=== PATIENT | female | born 1935 | race Caucasian/White ===

== ENCOUNTER 2021-08-18 16:08 | Inpatient (IN) ==
[2021-08-18 16:13] VITALS: BMI 27.2
--- NOTE | 2021-08-18 17:13 | ED.PDOC ---
General ED Provider: Dr. ROB OMALLEY Chief Complaint: Hypoglycemia Stated Complaint: Found unresponsive at home. Paramedics from [facility] called. Administered Glucagon. unable to gain vascular access and transported to ER. Currently awake, alert and communicating. IV access obtained Time Seen by Provider: 08/18/21 16:20 Mode of Arrival: Ambulance Information Source: Patient and EMT Exam Limitations: No limitations Primary Care Provider: NINI JALLOH Nursing and Triage Documentation Reviewed and Agree: Yes Does patient meet sepsis criteria?: No System Inflammatory Response Syndrome: Not Applicable Sepsis Protocol: For patient's 13 years and over: Temp is 96.8 and below OR 101 and greater Pulse >90 BPM Resp >20/minute Acutely Altered Mental Status Are patient's symptoms suggestive of a new infection, such as: -Pneumonia -Skin, Soft Tissue -Endocarditis -UTI -Bone, Joint Infection -Implantable Device -Acute Abdominal Infection -Wound Infection -Meningitis -Blood Stream Catheter Infection -Unknown Endocrine Complaint Exam Diabetic Complication Complaint/Exam Onset/Duration: 1300 Symptoms Are: Resolved Timing: Intermittent Initial Severity: Severe Current Severity: None Character: Alert Aggravating: Reports Diet change and Medication change Alleviating: Reports Medications Associated Signs and Symptoms: Reports Decreased LOC Related History: Reports Similar episode, DM 2, Insulin requiring, Controlled and Compliant Last Glucometer Reading: unknown Cardiac Risk Factors: Reports DM, Hypertension and Elevated lipids CVA Risk Factors: Reports DM and Hypertension Serious Bacterial Infection Risk Factors: Reports None Related Surgical History: Reports None Acetone on Breath: No Dry Mucous Membranes: No Kussmaul Respirations: No Meningeal Signs: No Focal Weakness: None Focal Sensory Loss: None Gait: Unable Nystagmus Present: No Gag Reflex Present: Yes Finger to Nose: Normal Babinski Sign: Negative Right and Negative Left Heel to Toe Normal: Yes Differential Diagnoses: Hypoglycemia, Pneumonia and Sepsis Review of Systems Review Of Systems Constitutional: Reports Malaise and Weakness Eyes: Reports No symptoms Ears, Nose, Mouth, Throat: Reports No symptoms Respiratory: Reports No symptoms Cardiac: Reports No symptoms GI: Reports No symptoms : Reports No symptoms Musculoskeletal: Reports No symptoms Skin: Reports No symptoms Neurological: Reports Cognitive dysfunction (initiallly) Endocrine: Reports No symptoms Hematologic/Lymphatic: Reports No symptoms All Other Systems: Reviewed and Negative [facility] Medical History (Updated 08/18/21 @ 22:27 by LAURA QUINTANA RN) Arthritis Arthritis Dementia Diabetes mellitus Hypertension Family History (Updated 08/18/21 @ 22:27 by LAURA QUINTANA RN) Mother Diabetes MATERNAL GRANDMOTHER Diabetes SISTER Diabetes Social History (Updated 08/18/21 @ 22:29 by LAURA QUINTANA RN) Smoking and tobacco status: Former smoker Tobacco: How many years used: 45 Female Reproductive History Menstrual Hx Hysterectomy: No Hx Tubal Ligation: No Physical Exam Physical Exam Appearance: Reports Ill-appearing and Obese Ill-appearing: Mild Pain Distress: None Eyes: Reports ADRIAN, EOMI and Conjunctiva clear ENT: Reports Ears normal, Nose normal and Oropharynx normal Neck: Supple Respiratory: Reports Airway patent, Breath sounds clear, Breath sounds equal and Respirations nonlabored Cardiovascular: Reports RRR, Pulses normal, No rub and No murmur GI/: Reports Soft, Nontender, No masses, Bowel sounds normal and No Organomegaly Musculoskeletal: Reports Normal strength, ROM intact, No edema and No calf tenderness Skin: Reports Warm and Dry Neurological: Reports Sensation intact, Motor intact, Cranial nerves intact, Alert, Oriented and Alert to pain Psychiatric: Reports Affect appropriate and Anxious Interpretation Radiology Interpretation Exam Interpreted: Portable CXR (no acute findings) Radiology Interpretation By: Radiologist Physician Notification Case Discussed Physician Notified: Dr Baird Time of Notification: 19:00 Comments: Will admt for observation/Son refused to come and pick her up no transportation Critical Care Note Critical Care Note Total Critical Care Time (mins): 30 Course Course Hematology/Chemistry: 08/19/21 05:08 08/19/21 05:58 Orders, Labs, Meds: Lab Review 08/18/21 08/18/21 08/18/21 17:20 17:20 17:56 WBC 19.11 H RBC 4.31 Hgb 13.2 Hct 40.8 MCV 94.7 MCH 30.6 MCHC 32.4 RDW Coeff of [place] 14.3 Plt Count 235 Immature Gran % (Auto) 0.3 Neut % (Auto) 79.0 H Lymph % (Auto) 14.7 [place] % (Auto) 4.5 Eos % (Auto) 0.8 Baso % (Auto) 0.7 Neut # (Auto) 15.1 H Lymph # (Auto) 2.8 [place] # (Auto) 0.9 Eos # (Auto) 0.2 Baso # (Auto) 0.1 Immature Gran # (Auto) 0.1 Sodium 143.5 Potassium 4.11 Chloride 109.5 H Carbon Dioxide 26.7 Anion Gap 11.41 BUN 18.8 H Creatinine 0.96 Estimated GFR (MDRD) 55.00 BUN/Creatinine Ratio 19.58 Glucose 107.7 H Lactic Acid Uric Acid 5.13 Calcium 8.49 Total Bilirubin 0.19 L AST 20.0 ALT 9.7 Alkaline Phosphatase 68.6 Troponin I < 0.012 Total Protein 6.57 Albumin 3.47 L Globulin 3.10 Albumin/Globulin Ratio 1.11 Procalcitonin Urine Color Yellow Urine Clarity Clear Urine pH 5.0 Ur Specific [place] >=1.030 Urine Protein Negative Urine Glucose (UA) Negative Urine Ketones Negative Urine Blood Negative Urine Nitrite Negative Urine Bilirubin Negative Urine Urobilinogen 0.2 Ur Leukocyte Esterase Trace H Urine Microscopic WBC 2-5 Ur Squamous Epith Cells 20-30 Urine Mucus 1+ Adenovirus (PCR) B. pertussis DNA (PCR) B.parapertussis DNA PCR C. pneumoniae DNA (PCR) Coronavirus OC43 (PCR) Coronavirus HKU1 (PCR) Coronavirus 229E (PCR) Coronavirus NL63 (PCR) Human Metapneumovir PCR Influenza Type A (PCR) Influenza B (RT-PCR) M. pneumoniae (PCR) Parainfluenza 1 (PCR) Parainfluenza 2 (PCR) Parainfluenza 3 (PCR) Parainfluenza 4 (PCR) RSV (PCR) Entero/Rhino (PCR) SARS-CoV-2 (PCR) 08/18/21 08/18/21 08/18/21 19:00 19:00 19:00 WBC 16.23 H RBC 4.40 Hgb 13.2 Hct 41.7 MCV 94.8 MCH 30.0 MCHC 31.7 L RDW Coeff of [place] 14.5 Plt Count 225 Immature Gran % (Auto) 0.4 Neut % (Auto) 74.1 Lymph % (Auto) 20.8 [place] % (Auto) 3.5 Eos % (Auto) 0.5 Baso % (Auto) 0.7 Neut # (Auto) 12.0 H Lymph # (Auto) 3.4 [place] # (Auto) 0.6 Eos # (Auto) 0.1 Baso # (Auto) 0.1 Immature Gran # (Auto) 0.1 Sodium Potassium Chloride Carbon Dioxide Anion Gap BUN Creatinine Estimated GFR (MDRD) BUN/Creatinine Ratio Glucose 110.2 H Lactic Acid 2.02 Uric Acid Calcium Total Bilirubin AST ALT Alkaline Phosphatase Troponin I Total Protein Albumin Globulin Albumin/Globulin Ratio Procalcitonin Urine Color Urine Clarity Urine pH Ur Specific [place] Urine Protein Urine Glucose (UA) Urine Ketones Urine Blood Urine Nitrite Urine Bilirubin Urine Urobilinogen Ur Leukocyte Esterase Urine Microscopic WBC Ur Squamous Epith Cells Urine Mucus Adenovirus (PCR) B. pertussis DNA (PCR) B.parapertussis DNA PCR C. pneumoniae DNA (PCR) Coronavirus OC43 (PCR) Coronavirus HKU1 (PCR) Coronavirus 229E (PCR) Coronavirus NL63 (PCR) Human Metapneumovir PCR Influenza Type A (PCR) Influenza B (RT-PCR) M. pneumoniae (PCR) Parainfluenza 1 (PCR) Parainfluenza 2 (PCR) Parainfluenza 3 (PCR) Parainfluenza 4 (PCR) RSV (PCR) Entero/Rhino (PCR) SARS-CoV-2 (PCR) 08/18/21 08/18/21 19:00 21:00 WBC RBC Hgb Hct MCV MCH MCHC RDW Coeff of [place] Plt Count Immature Gran % (Auto) Neut % (Auto) Lymph % (Auto) [place] % (Auto) Eos % (Auto) Baso % (Auto) Neut # (Auto) Lymph # (Auto) [place] # (Auto) Eos # (Auto) Baso # (Auto) Immature Gran # (Auto) Sodium Potassium Chloride Carbon Dioxide Anion Gap BUN Creatinine Estimated GFR (MDRD) BUN/Creatinine Ratio Glucose Lactic Acid Uric Acid Calcium Total Bilirubin AST ALT Alkaline Phosphatase Troponin I Total Protein Albumin Globulin Albumin/Globulin Ratio Procalcitonin 0.05 Urine Color Urine Clarity Urine pH Ur Specific [place] Urine Protein Urine Glucose (UA) Urine Ketones Urine Blood Urine Nitrite Urine Bilirubin Urine Urobilinogen Ur Leukocyte Esterase Urine Microscopic WBC Ur Squamous Epith Cells Urine Mucus Adenovirus (PCR) Not detected B. pertussis DNA (PCR) Not detected B.parapertussis DNA PCR Not detected C. pneumoniae DNA (PCR) Not detected Coronavirus OC43 (PCR) Not detected Coronavirus HKU1 (PCR) Not detected Coronavirus 229E (PCR) Not detected Coronavirus NL63 (PCR) Not detected Human Metapneumovir PCR Not detected Influenza Type A (PCR) Not detected Influenza B (RT-PCR) Not detected M. pneumoniae (PCR) Not detected Parainfluenza 1 (PCR) Not detected Parainfluenza 2 (PCR) Not detected Parainfluenza 3 (PCR) Not detected Parainfluenza 4 (PCR) Not detected RSV (PCR) Not detected Entero/Rhino (PCR) Not detected SARS-CoV-2 (PCR) Not detected Orders Category Date Time Status ADMIT OBSERVATION [PLACE PATIENT OBSERVATION] .TO ADMISSION 08/18/21 20:29 Active MEDSURG (MONITORED BED) EKG-(ED ONLY) Stat CARDIO 08/18/21 20:10 Completed ACTIVITY .Up With Assistance CARE 08/18/21 20:09 Active BLOOD GLUCOSE MONITORING 0630,1100,1700,2100 CARE 08/18/21 20:12 Completed GIVE HS SNACK 2100 CARE 08/18/21 20:12 Active INTAKE & OUTPUT Q8HR CARE 08/18/21 20:10 Completed IP: INSERT SALINE LOCK ONCE CARE 08/18/21 20:10 Active TELEMETRY MONITORING TELE CARE 08/18/21 20:30 Active VITAL SIGNS Q4HR CARE 08/18/21 20:11 Completed VITAL SIGNS Q8HR CARE 08/18/21 20:10 Active ADA 1800 DANIA. DIET DIETARY 08/18/21 Breakfast Ordered BLOOD CULTURE (ED ONLY) Stat LAB 08/18/21 18:00 Received CBC W/ AUTO DIFF DAILY@0600 LAB 08/19/21 05:08 Completed CBC W/ AUTO DIFF DAILY@0600 LAB 08/20/21 06:00 Ordered CBC W/ AUTO DIFF Stat LAB 08/18/21 17:20 Completed CBC W/ AUTO DIFF Stat LAB 08/18/21 19:00 Completed CMP [COMPREHENSIVE METABOLIC PANEL] Stat LAB 08/18/21 17:20 Completed COMPREHENSIVE METABOLIC PANEL DAILY@0600 LAB 08/19/21 05:08 Completed COMPREHENSIVE METABOLIC PANEL DAILY@0600 LAB 08/20/21 06:00 Ordered GLUCOSE Stat LAB 08/18/21 19:00 Completed LACTIC ACID Stat LAB 08/18/21 19:00 Completed LACTIC ACID Timed LAB 08/19/21 01:00 Completed PROCALCITONIN Stat LAB 08/18/21 19:00 Completed RESPIRATORY PANEL 2.1 (PCR) Stat LAB 08/18/21 21:00 Completed TROPONIN I Stat LAB 08/18/21 17:20 Completed UA [URINALYSIS C & S IF INDICATED] Stat LAB 08/18/21 17:56 Completed URIC ACID Stat LAB 08/18/21 17:20 Completed URINE CULTURE Routine LAB 08/18/21 20:28 Received Acetaminophen [Tylenol] MEDS 08/18/21 20:14 Active 650 mg PO Q4H PRN Ceftriaxone/D5w 1 gm Premix [Rocephin 1 gm/50 ml D5w] MEDS 08/18/21 20:30 Discontinued 1 gm in 50 ml IV DAILY Donepezil HCl [Aricept] MEDS 08/19/21 09:00 Active 10 mg PO DAILY Enoxaparin Sodium [Lovenox] MEDS 08/19/21 09:00 Active 40 mg SUBCUT DAILY Gabapentin [Neurontin] MEDS 08/18/21 21:00 Active 400 mg PO TID Memantine HCl [Namenda] MEDS 08/18/21 21:00 Active 10 mg PO BID Metoprolol Tartrate [Lopressor] MEDS 08/18/21 21:00 Active 25 mg PO BID Saccharomyces Boulardii [Florastor] MEDS 08/19/21 09:00 Active 250 mg PO DAILY Sodium Chloride 0.9% [Sodium Chloride] 1,000 ml MEDS 08/18/21 21:05 Active IV 60 mls/hr Tramadol HCl [Ultram] MEDS 08/18/21 20:26 Active 50 mg PO TID PRN RESUSCITATION STATUS Routine OTHERS 08/18/21 20:09 Completed CHEST, 1V AP ONLY Stat RADS 08/18/21 17:09 Completed Medications Generic Name Dose Route Start Last Admin Trade Name Adal PRN Reason Stop Dose Admin Acetaminophen 650 mg 08/18/21 20:14 Acetaminophen 325 Mg Tablet PO Q4H PRN Mild Pain Donepezil HCl 10 mg 08/19/21 09:00 Donepezil Hcl 10 Mg Tablet PO DAILY CHANO Enoxaparin Sodium 40 mg 08/19/21 09:00 Enoxaparin Sodium 40 Mg/0.4 Ml Syr SUBCUT DAILY CHANO Gabapentin 400 mg 08/18/21 21:00 08/18/21 23:04 Gabapentin 100 Mg Capsule PO 400 mg TID CHANO Administration Sodium Chloride 1,000 mls @ 60 mls/hr 08/18/21 21:05 08/18/21 23:05 Sodium Chloride IV 08/19/21 13:44 60 mls/hr .[id number] STA Administration CEFTRIAXONE/D5W 1 GM PREMIX 1 gm in 50 mls @ 75 mls/hr 08/19/21 21:00 Rocephin 1 Gm/50 Ml D5w IV 08/21/21 20:29 BEDTIME CHANO Memantine 10 mg 08/18/21 21:00 08/18/21 23:04 Memantine Hcl 10 Mg Tablet PO 10 mg BID CHANO Administration Metoprolol Tartrate 25 mg 08/18/21 21:00 08/18/21 23:04 Metoprolol Tartrate 25 Mg Tablet PO 25 mg BID CHANO Administration Saccharomyces Boulardii 250 mg 08/19/21 09:00 Saccharomyces Boulardii 250 Mg Capsule PO DAILY CHANO Tramadol HCl 50 mg 08/18/21 20:26 08/18/21 23:04 Tramadol Hcl 50 Mg Tablet PO 50 mg TID PRN Administration Joint Pain Discontinued Medications Generic Name Dose Route Start Last Admin Trade Name Freq PRN Reason Stop Dose Admin Dextrose 50 ml 08/19/21 06:11 08/19/21 06:41 Dextrose 50 % In Water 50 Ml Disp.Syrin IVP 08/19/21 06:12 25 ml ONCE STA Administration Dextrose 50 ml 08/19/21 06:11 08/19/21 05:50 Dextrose 50 % In Water 50 Ml Disp.Syrin IVP 08/19/21 06:12 50 ml ONCE ONE Administration Glucagon 1 mg 08/19/21 05:50 08/19/21 05:44 Glucagon,Human Recombinant 1 Mg Kit IM 08/19/21 05:51 1 mg ONCE STA Administration CEFTRIAXONE/D5W 1 GM PREMIX 1 gm in 50 mls @ 75 mls/hr 08/18/21 20:30 08/18/21 21:13 Rocephin 1 Gm/50 Ml D5w IV 08/21/21 20:29 75 mls/hr DAILY CHANO Administration Vital Signs: Temp Pulse Resp BP Pulse Ox 08/18/21 21:18 97.8 F 81 18 160/65 H 96 08/18/21 16:08 96.8 F L 64 15 179/98 H 94 L Discharge Plan Discharge Patient Disposition: PLACED OBSERVATION Discharge Problem: Hypoglycemia ED Provider: CONNIE TIMMONS Condition: Good Physician Progress Note: []
[2021-08-18 17:25] LABS: BASOPHILS # (AUTO) 0.1 K/uL (0-0.2); BASOPHILS % (AUTO) 0.7 % (0.0-3.0); EOSINOPHILS # (AUTO) 0.2 K/ul (0.0-0.7); EOSINOPHILS % (AUTO) 0.8 % (0.0-7.0); HEMATOCRIT 40.8 % (37.0-47.0); HEMOGLOBIN 13.2 g/dl (12.0-16.0); IMMATURE GRANULOCYTE # (AUTO) 0.1 (0.0-1.0); IMMATURE GRANULOCYTE % (AUTO) 0.3 % (0.0-5.0); LYMPHOCYTES # (AUTO) 2.8 K/uL (0.60-3.4); LYMPHOCYTES % (AUTO) 14.7 (10.0-50.0); MEAN CORPUSCULAR HEMOGLOBIN 30.6 pg (27.0-31.0); MEAN CORPUSCULAR HGB CONC 32.4 (31.8-35.4); MEAN CORPUSCULAR VOLUME 94.7 fl (81.0-99.0); MONOCYTES # (AUTO) 0.9 K/uL (0.4-2.0); MONOCYTES % (AUTO) 4.5 (0-10); NEUTROPHILS # (AUTO) 15.1 K/ul (2.0-6.9); PLATELET COUNT 235 10^3/uL (140-440); RDW COEFFICIENT OF VARIATION 14.3 % (11.6-14.8); RED BLOOD COUNT 4.31 10^6/ul (4.20-5.40); WHITE BLOOD COUNT 19.11 K/ul (4.6-10.2)
[2021-08-18 17:37] LABS: ALANINE AMINOTRANSFERASE 9.7 U/L (0-35); ALBUMIN 3.47 g/dL (3.5-5.0); ALKALINE PHOSPHATASE 68.6 U/L (53-141); BILIRUBIN,TOTAL 0.19 mg/dL (0.2-1.3); BLOOD UREA NITROGEN 18.8 mg/dL (7-17); CALCIUM 8.49 mg/dL (8.4-10.2); CARBON DIOXIDE 26.7 mmol/L (22-30.0); CHLORIDE 109.5 mmol/L (98-107); CREATININE 0.96 mg/dL (0.60-1.30); GLUCOSE 107.7 mg/dL (74-106); POTASSIUM 4.11 mmol/L (3.5-5.1); SODIUM 143.5 mmol/L (134.5-145); TOTAL PROTEIN 6.57 g/dL (6.3-8.2); URIC ACID 5.13 mg/dL (2.5-6.2)
[2021-08-18 17:49] LABS: TROPONIN I < 0.012 ng/ml (0.0000-0.120)
[2021-08-18 18:02] LABS: BILIRUBIN,URINE Negative (NEGATIVE); CLARITY,URINE Clear (CLEAR); COLOR,URINE Yellow (YELLOW); GLUCOSE, URINE (UA) Negative (NEGATIVE); KETONES,URINE Negative (NEGATIVE); LEUKOCYTE ESTERASE ,URINE Trace (NEGATIVE); NITRITE,URINE Negative (NEGATIVE); PROTEIN,URINE Negative (NEGATIVE); URINE, BLOOD Negative (NEGATIVE); UROBILINOGEN,URINE 0.2 (0.2)
[2021-08-18 18:07] LABS: MUCUS,URINE 1+ (NOT PRESENT); SQUAMOUS EPITHELIAL CELL,UR 20-30 (0-5)
--- NOTE | 2021-08-18 18:38 | DI ---
EXAM: Single view chest. HISTORY: Hypoglycemia COMPARISON: 08/14/2020 FINDINGS: The heart is normal in size. Calcified plaques overlie the aorta. Pulmonary vascularity i s within normal limits. No focal airspace opacity or pleural effusion is seen. The bones appear dif fusely demineralized. A suture anchor is again seen overlying the right humeral head. A small hiata l hernia is seen. Remote right rib fractures are suggested. IMPRESSION: No acute cardiopulmonary findings. Small hiatal hernia. Other chronic findings as above.
[2021-08-18 19:04] LABS: BASOPHILS # (AUTO) 0.1 K/uL (0-0.2); BASOPHILS % (AUTO) 0.7 % (0.0-3.0); EOSINOPHILS # (AUTO) 0.1 K/ul (0.0-0.7); EOSINOPHILS % (AUTO) 0.5 % (0.0-7.0); HEMATOCRIT 41.7 % (37.0-47.0); HEMOGLOBIN 13.2 g/dl (12.0-16.0); IMMATURE GRANULOCYTE # (AUTO) 0.1 (0.0-1.0); IMMATURE GRANULOCYTE % (AUTO) 0.4 % (0.0-5.0); LYMPHOCYTES # (AUTO) 3.4 K/uL (0.60-3.4); LYMPHOCYTES % (AUTO) 20.8 (10.0-50.0); MEAN CORPUSCULAR HGB CONC 31.7 (31.8-35.4); MEAN CORPUSCULAR VOLUME 94.8 fl (81.0-99.0); MONOCYTES # (AUTO) 0.6 K/uL (0.4-2.0); MONOCYTES % (AUTO) 3.5 (0-10); NEUTROPHILS % (AUTO) 74.1 % (42.2-75.2); PLATELET COUNT 225 10^3/uL (140-440); RDW COEFFICIENT OF VARIATION 14.5 % (11.6-14.8); WHITE BLOOD COUNT 16.23 K/ul (4.6-10.2)
[2021-08-18] MEDS ORDERED: ROCEPHIN 1 GM/50 ML D5W 1 GM/50 ML BAG IV SCH (20:30)
[2021-08-18] MEDS ORDERED: SODIUM CHLORIDE 1,000 ML IV STA (21:05)
[2021-08-18 21:20] LABS: ADENOVIRUS (PCR) NOT DETECTED (NOT DETECT); BORDETELLA PARAPERTUSSIS (PCR) NOT DETECTED (NOT DETECT); BORDETELLA PERTUSSIS (PCR) NOT DETECTED (NOT DETECT); CHLAMYDIA PNEUMONIAE (PCR) NOT DETECTED (NOT DETECT); CORONAVIRUS 229E (PCR) NOT DETECTED (NOT DETECT); CORONAVIRUS HKU1 (PCR) NOT DETECTED (NOT DETECT); CORONAVIRUS NL63 (PCR) NOT DETECTED (NOT DETECT); CORONAVIRUS OC43 (PCR) NOT DETECTED (NOT DETECT); HUMAN METAPNEUMOVIRUS (PCR) NOT DETECTED (NOT DETECT); HUMAN RHINOVIRUS/ENTEROV (PCR) NOT DETECTED (NOT DETECT); INFLUENZA B (PCR) NOT DETECTED (NOT DETECT); MYCOPLASMA PNEUMONIAE (PCR) NOT DETECTED (NOT DETECT); PARAINFLUENZA VIRUS 1 (PCR) NOT DETECTED (NOT DETECT); PARAINFLUENZA VIRUS 2 (PCR) NOT DETECTED (NOT DETECT); PARAINFLUENZA VIRUS 3 (PCR) NOT DETECTED (NOT DETECT); PARAINFLUENZA VIRUS 4 (PCR) NOT DETECTED (NOT DETECT); RESPIRATORY SYNCYTIAL V (PCR) NOT DETECTED (NOT DETECT); SARS_COV_2 (PCR) NOT DETECTED (NOT DETECT)
--- NOTE | 2021-08-18 22:10 | PCM ---
Chief Complaint Chief Complaint: diabetic hypoglycemic event with unknown LOC / Leukocytosis / UTi History of Present Illness History of Present Illness: Took her 40 U lantus insulin this morning . Usually midmorning eats a large bo2wl of ceral and didnt have any. Nest this she new EMS had her. She reportedly had a low BS and IVdiffuicult to establish and given glucagon. At the ED she received IV fluids and evaluation. At shift change Dr Reza wanted to admit as pt had 19K wbc and with the IV difficulty and transportation issues observation was elected and patient agreed to stay Review of Systems Constitutional: Reports No symptoms Eyes: Reports No symptoms Ears: Reports No symptoms Nose: Reports No symptoms Throat: Reports No symptoms Mouth: Reports No symptoms Respiratory: Reports No symptoms Cardiovascular: Reports No symptoms Gastrointestinal: Reports No symptoms Genitourinary: Reports No symptoms Last Menstrual Cycle: post menopausal Neurological: Reports No symptoms Musculoskeletal: Reports No symptoms Immunology: Reports No symptoms Hematology: Reports No symptoms Endocrine: Reports No symptoms Psychiatric: Reports No symptoms Allergies Allergies Allergy/AdvReac Type Severity Reaction Status Date / Time No Known Allergies Allergy Verified 08/18/21 16:33 Medications Medications: Medications Generic Name Dose Route Start Last Admin Trade Name Freq PRN Reason Stop Dose Admin Acetaminophen 650 mg 08/18/21 20:14 Acetaminophen 325 Mg Tablet PO Q4H PRN Mild Pain Donepezil HCl 10 mg 08/19/21 09:00 Donepezil Hcl 10 Mg Tablet PO DAILY CHANO Enoxaparin Sodium 40 mg 08/19/21 09:00 Enoxaparin Sodium 40 Mg/0.4 Ml Syr SUBCUT DAILY CHANO Gabapentin 400 mg 08/18/21 21:00 Gabapentin 100 Mg Capsule PO TID CHANO CEFTRIAXONE/D5W 1 GM PREMIX 1 gm in 50 mls @ 75 mls/hr 08/18/21 20:30 21:13 Rocephin 1 Gm/50 Ml D5w IV 08/21/21 20:29 75 mls/hr DAILY CHANO Administration Sodium Chloride 1,000 mls @ 60 mls/hr 08/18/21 21:05 Sodium Chloride IV 08/19/21 13:44 .[id number] STA Memantine 10 mg 08/18/21 21:00 Memantine Hcl 10 Mg Tablet PO BID CHANO Metoprolol Tartrate 25 mg 08/18/21 21:00 Metoprolol Tartrate 25 Mg Tablet PO BID CHANO Saccharomyces Boulardii 250 mg 08/19/21 09:00 Saccharomyces Boulardii 250 Mg Capsule PO DAILY CHANO Tramadol HCl 50 mg 08/18/21 20:26 Tramadol Hcl 50 Mg Tablet PO TID PRN Joint Pain Body Composition Height: 5 ft 2 in Weight: 148 lb 12.992 oz Body Mass Index (BMI): 27.2 Vital Signs Temperature: 97.8 F Pulse Rate: 81 Respiratory Rate: 18 Blood Pressure: 160/65 O2 Sat by Pulse Oximetry: 96 Physical Examination Appearance: Reports Well-appearing Ill-appearing: None Pain Distress: None Eyes: Reports ADRIAN, EOMI and Conjunctiva clear ENT: Reports Ears normal, Nose normal, Oropharynx normal and Other (edentoulous ) Neck: Supple Respiratory: Reports Airway patent, Breath sounds clear and Breath sounds equal Cardiovascular: Reports RRR and No murmur GI/: Reports Soft and Nontender Musculoskeletal: Reports Normal strength, ROM intact and No edema Skin: Reports Warm, Dry and Normal color Neurological: Reports Sensation intact, Motor intact, Alert and Oriented Psychiatric: Reports Affect appropriate and Mood appropriate Lab/Tests/Diagnostic Imaging Lab/Tests/Diagnostic Imaging: Lab Review 08/18/21 08/18/21 08/18/21 17:20 17:20 17:56 WBC 19.11 H RBC 4.31 Hgb 13.2 Hct 40.8 MCV 94.7 MCH 30.6 MCHC 32.4 RDW Coeff of Beverly 14.3 Plt Count 235 Immature Gran % (Auto) 0.3 Neut % (Auto) 79.0 H Lymph % (Auto) 14.7 Todd % (Auto) 4.5 Eos % (Auto) 0.8 Baso % (Auto) 0.7 Neut # (Auto) 15.1 H Lymph # (Auto) 2.8 Todd # (Auto) 0.9 Eos # (Auto) 0.2 Baso # (Auto) 0.1 Immature Gran # (Auto) 0.1 Sodium 143.5 Potassium 4.11 Chloride 109.5 H Carbon Dioxide 26.7 Anion Gap 11.41 BUN 18.8 H Creatinine 0.96 Estimated GFR (MDRD) 55.00 BUN/Creatinine Ratio 19.58 Glucose 107.7 H Lactic Acid Uric Acid 5.13 Calcium 8.49 Total Bilirubin 0.19 L AST 20.0 ALT 9.7 Alkaline Phosphatase 68.6 Troponin I < 0.012 Total Protein 6.57 Albumin 3.47 L Globulin 3.10 Albumin/Globulin Ratio 1.11 Procalcitonin Urine Color Yellow Urine Clarity Clear Urine pH 5.0 Ur Specific Rosebud >=1.030 Urine Protein Negative Urine Glucose (UA) Negative Urine Ketones Negative Urine Blood Negative Urine Nitrite Negative Urine Bilirubin Negative Urine Urobilinogen 0.2 Ur Leukocyte Esterase Trace H Urine Microscopic WBC 2-5 Ur Squamous Epith Cells 20-30 Urine Mucus 1+ Adenovirus (PCR) B. pertussis DNA (PCR) B.parapertussis DNA PCR C. pneumoniae DNA (PCR) Coronavirus OC43 (PCR) Coronavirus HKU1 (PCR) Coronavirus 229E (PCR) Coronavirus NL63 (PCR) Human Metapneumovir PCR Influenza Type A (PCR) Influenza B (RT-PCR) M. pneumoniae (PCR) Parainfluenza 1 (PCR) Parainfluenza 2 (PCR) Parainfluenza 3 (PCR) Parainfluenza 4 (PCR) RSV (PCR) Entero/Rhino (PCR) SARS-CoV-2 (PCR) 08/18/21 08/18/21 08/18/21 19:00 19:00 19:00 WBC 16.23 H RBC 4.40 Hgb 13.2 Hct 41.7 MCV 94.8 MCH 30.0 MCHC 31.7 L RDW Coeff of [place] 14.5 Plt Count 225 Immature Gran % (Auto) 0.4 Neut % (Auto) 74.1 Lymph % (Auto) 20.8 Todd % (Auto) 3.5 Eos % (Auto) 0.5 Baso % (Auto) 0.7 Neut # (Auto) 12.0 H Lymph # (Auto) 3.4 Todd # (Auto) 0.6 Eos # (Auto) 0.1 Baso # (Auto) 0.1 Immature Gran # (Auto) 0.1 Sodium Potassium Chloride Carbon Dioxide Anion Gap BUN Creatinine Estimated GFR (MDRD) BUN/Creatinine Ratio Glucose 110.2 H Lactic Acid 2.02 Uric Acid Calcium Total Bilirubin AST ALT Alkaline Phosphatase Troponin I Total Protein Albumin Globulin Albumin/Globulin Ratio Procalcitonin Urine Color Urine Clarity Urine pH Ur Specific [place] Urine Protein Urine Glucose (UA) Urine Ketones Urine Blood Urine Nitrite Urine Bilirubin Urine Urobilinogen Ur Leukocyte Esterase Urine Microscopic WBC Ur Squamous Epith Cells Urine Mucus Adenovirus (PCR) B. pertussis DNA (PCR) B.parapertussis DNA PCR C. pneumoniae DNA (PCR) Coronavirus OC43 (PCR) Coronavirus HKU1 (PCR) Coronavirus 229E (PCR) Coronavirus NL63 (PCR) Human Metapneumovir PCR Influenza Type A (PCR) Influenza B (RT-PCR) M. pneumoniae (PCR) Parainfluenza 1 (PCR) Parainfluenza 2 (PCR) Parainfluenza 3 (PCR) Parainfluenza 4 (PCR) RSV (PCR) Entero/Rhino (PCR) SARS-CoV-2 (PCR) 08/18/21 08/18/21 19:00 21:00 WBC RBC Hgb Hct MCV MCH MCHC RDW Coeff of [place] Plt Count Immature Gran % (Auto) Neut % (Auto) Lymph % (Auto) Todd % (Auto) Eos % (Auto) Baso % (Auto) Neut # (Auto) Lymph # (Auto) Todd # (Auto) Eos # (Auto) Baso # (Auto) Immature Gran # (Auto) Sodium Potassium Chloride Carbon Dioxide Anion Gap BUN Creatinine Estimated GFR (MDRD) BUN/Creatinine Ratio Glucose Lactic Acid Uric Acid Calcium Total Bilirubin AST ALT Alkaline Phosphatase Troponin I Total Protein Albumin Globulin Albumin/Globulin Ratio Procalcitonin 0.05 Urine Color Urine Clarity Urine pH Ur Specific [place] Urine Protein Urine Glucose (UA) Urine Ketones Urine Blood Urine Nitrite Urine Bilirubin Urine Urobilinogen Ur Leukocyte Esterase Urine Microscopic WBC Ur Squamous Epith Cells Urine Mucus Adenovirus (PCR) Not detected B. pertussis DNA (PCR) Not detected B.parapertussis DNA PCR Not detected C. pneumoniae DNA (PCR) Not detected Coronavirus OC43 (PCR) Not detected Coronavirus HKU1 (PCR) Not detected Coronavirus 229E (PCR) Not detected Coronavirus NL63 (PCR) Not detected Human Metapneumovir PCR Not detected Influenza Type A (PCR) Not detected Influenza B (RT-PCR) Not detected M. pneumoniae (PCR) Not detected Parainfluenza 1 (PCR) Not detected Parainfluenza 2 (PCR) Not detected Parainfluenza 3 (PCR) Not detected Parainfluenza 4 (PCR) Not detected RSV (PCR) Not detected Entero/Rhino (PCR) Not detected SARS-CoV-2 (PCR) Not detected Orders Category Date Time Status ADMIT OBSERVATION [PLACE PATIENT OBSERVATION] .TO ADMISSION 08/18/21 20:29 Active MEDSURG (MONITORED BED) EKG-(ED ONLY) Stat CARDIO 08/18/21 20:10 Completed ACTIVITY .Up With Assistance CARE 08/18/21 20:09 Active BLOOD GLUCOSE MONITORING 0630,1100,1700,2100 CARE 08/18/21 20:12 Active GIVE HS SNACK 2100 CARE 08/18/21 20:12 Active INTAKE & OUTPUT Q8HR CARE 08/18/21 20:10 Active IP: INSERT SALINE LOCK ONCE CARE 08/18/21 20:10 Active TELEMETRY MONITORING TELE CARE 08/18/21 20:30 Active VITAL SIGNS Q4HR CARE 08/18/21 20:11 Active VITAL SIGNS Q8HR CARE 08/18/21 20:10 Active ADA 1800 DANIA. DIET DIETARY 08/18/21 Breakfast Ordered BLOOD CULTURE (ED ONLY) Stat LAB 08/18/21 18:00 Received CBC W/ AUTO DIFF DAILY@0600 LAB 08/19/21 06:00 Ordered CBC W/ AUTO DIFF DAILY@0600 LAB 08/20/21 06:00 Ordered CBC W/ AUTO DIFF Stat LAB 08/18/21 17:20 Completed CBC W/ AUTO DIFF Stat LAB 08/18/21 19:00 Completed CMP [COMPREHENSIVE METABOLIC PANEL] Stat LAB 08/18/21 17:20 Completed COMPREHENSIVE METABOLIC PANEL DAILY@0600 LAB 08/19/21 06:00 Ordered COMPREHENSIVE METABOLIC PANEL DAILY@0600 LAB 08/20/21 06:00 Ordered GLUCOSE Stat LAB 08/18/21 19:00 Completed LACTIC ACID Stat LAB 08/18/21 19:00 Completed LACTIC ACID Timed LAB 08/19/21 01:00 Ordered PROCALCITONIN Stat LAB 08/18/21 19:00 Completed RESPIRATORY PANEL 2.1 (PCR) Stat LAB 08/18/21 21:00 Completed TROPONIN I Stat LAB 08/18/21 17:20 Completed UA [URINALYSIS C & S IF INDICATED] Stat LAB 08/18/21 17:56 Completed URIC ACID Stat LAB 08/18/21 17:20 Completed URINE CULTURE Routine LAB 08/18/21 20:28 Ordered Acetaminophen [Tylenol] MEDS 08/18/21 20:14 Active 650 mg PO Q4H PRN Ceftriaxone/D5w 1 gm Premix [Rocephin 1 gm/50 ml D5w] MEDS 08/18/21 20:30 Active 1 gm in 50 ml IV DAILY Donepezil HCl [Aricept] MEDS 08/19/21 09:00 Active 10 mg PO DAILY Enoxaparin Sodium [Lovenox] MEDS 08/19/21 09:00 Active 40 mg SUBCUT DAILY Gabapentin [Neurontin] MEDS 08/18/21 21:00 Active 400 mg PO TID Memantine HCl [Namenda] MEDS 08/18/21 21:00 Active 10 mg PO BID Metoprolol Tartrate [Lopressor] MEDS 08/18/21 21:00 Active 25 mg PO BID Saccharomyces Boulardii [Florastor] MEDS 08/19/21 09:00 Active 250 mg PO DAILY Sodium Chloride 0.9% [Sodium Chloride] 1,000 ml MEDS 08/18/21 21:05 Active IV 60 mls/hr Tramadol HCl [Ultram] MEDS 08/18/21 20:26 Active 50 mg PO TID PRN RESUSCITATION STATUS Routine OTHERS 08/18/21 20:09 Ordered CHEST, 1V AP ONLY Stat RADS 08/18/21 17:09 Completed Medications Generic Name Dose Route Start Last Admin Trade Name Frejose PRN Reason Stop Dose Admin Acetaminophen 650 mg 08/18/21 20:14 Acetaminophen 325 Mg Tablet PO Q4H PRN Mild Pain Donepezil HCl 10 mg 08/19/21 09:00 Donepezil Hcl 10 Mg Tablet PO DAILY CHANO Enoxaparin Sodium 40 mg 08/19/21 09:00 Enoxaparin Sodium 40 Mg/0.4 Ml Syr SUBCUT DAILY CHANO Gabapentin 400 mg 08/18/21 21:00 Gabapentin 100 Mg Capsule PO TID CHANO CEFTRIAXONE/D5W 1 GM PREMIX 1 gm in 50 mls @ 75 mls/hr 08/18/21 20:30 08/18/21 21:13 Rocephin 1 Gm/50 Ml D5w IV 08/21/21 20:29 75 mls/hr DAILY CHANO Administration Sodium Chloride 1,000 mls @ 60 mls/hr 08/18/21 21:05 Sodium Chloride IV 08/19/21 13:44 .[id number] STA Memantine 10 mg 08/18/21 21:00 Memantine Hcl 10 Mg Tablet PO BID CHAON Metoprolol Tartrate 25 mg 08/18/21 21:00 Metoprolol Tartrate 25 Mg Tablet PO BID CHANO Saccharomyces Boulardii 250 mg 08/19/21 09:00 Saccharomyces Boulardii 250 Mg Capsule PO DAILY CHANO Tramadol HCl 50 mg 08/18/21 20:26 Tramadol Hcl 50 Mg Tablet PO TID PRN Joint Pain Plan Plan: 1.For hypoglycemia - hold 08/19 am lantus, evening snack tonight , accucheck 4 times a day. HgA1c am , CMP am 2.For leukocytosis - BC pending , repeat lactic at 0100 08-19-2021, cbc am . Consider transient elevation from hypoglycemic event vs infection 3.For urinary - mild elevation wbc and LE -with elderly female diabetic with leukocytosis , urine culture pending , 1 gram rocephin given in ED, repeat lactic at 6 hrs,cbc am 4.For elevated urine specific gravity - saline at 60ml/hr with I& O 5.For elevated blood pressure - administer pm blood pressure meds 6.DVT - lovenox 40mg subq daily 7.For GI - famotidine 20mg po bid 8.For ekg with lateral T changes inversion and normal trop no chest pain - telemetry , EKG and trop in am
[2021-08-18] MEDS: ULTRAM PO PRN (23:04)
[2021-08-18] MEDS: NAMENDA PO SCH (23:04)
[2021-08-18] MEDS: LOPRESSOR PO SCH (23:04)
[2021-08-18] MEDS: NEURONTIN PO SCH (23:04)
[2021-08-19 05:14] LABS: HEMATOCRIT 41.3 % (37.0-47.0); HEMOGLOBIN 13.6 g/dl (12.0-16.0); MEAN CORPUSCULAR HEMOGLOBIN 30.2 pg (27.0-31.0); MEAN CORPUSCULAR HGB CONC 32.9 (31.8-35.4); MEAN CORPUSCULAR VOLUME 91.6 fl (81.0-99.0); PLATELET COUNT 293 10^3/uL (140-440); RDW COEFFICIENT OF VARIATION 14.2 % (11.6-14.8); RED BLOOD COUNT 4.51 10^6/ul (4.20-5.40); WHITE BLOOD COUNT 17.76 K/ul (4.6-10.2)
[2021-08-19 05:26] LABS: ALBUMIN 3.65 g/dL (3.5-5.0); ALKALINE PHOSPHATASE 75.4 U/L (53-141); ASPARTATE AMINO TRANSFERASE 22.4 U/L (14-36); BILIRUBIN,TOTAL 0.23 mg/dL (0.2-1.3); BLOOD UREA NITROGEN 15.3 mg/dL (7-17); CALCIUM 8.71 mg/dL (8.4-10.2); CARBON DIOXIDE 27.1 mmol/L (22-30.0); CHLORIDE 110.5 mmol/L (98-107); CREATININE 0.97 mg/dL (0.60-1.30); POTASSIUM 3.44 mmol/L (3.5-5.1); SODIUM 144.3 mmol/L (134.5-145); TOTAL PROTEIN 6.76 g/dL (6.3-8.2)
[2021-08-19 05:36] LABS: GLUCOSE 21.7 mg/dL (74-106)
[2021-08-19] MEDS ORDERED: GLUCAGEN ONE (05:43)
[2021-08-19 05:45] LABS: ANISOCYTOSIS NOT PRESENT (NOT PRESENT); TROPONIN I < 0.012 ng/ml (0.0000-0.120)
[2021-08-19] MEDS ORDERED: DEXTROSE 50%-WATER ABBOJECT ONE (05:48)
[2021-08-19] MEDS: DEXTROSE 50%-WATER ABBOJECT IVP STA ×2 (05:49→06:41)
[2021-08-19] MEDS: DEXTROSE 50%-WATER ABBOJECT ONE ×3 (05:49→06:18)
[2021-08-19] MEDS ORDERED: GLUCAGEN IM STA (05:50)
--- NOTE | 2021-08-19 06:06 | PCM.PROG ---
Date Seen by Provider: 08/19/21 Time Seen by Provider: 05:45 Subjective: Floor called with lab reporting low blood sugar. I responded immediately in person from the ER with the RN staying in ER - all patients there were stable. On arrival pt was not sweaty , breathing all vitalsl were good including pusle ox and no tachycardia. Nurse went to give D50 and IV was unknowingly out. While staff worked to replace IV I ordered 1 mg glucagon IM stat. Patient shortly after that was administered 1 amp of D50. She was observed and didnt respond as expected so a second amp was administered as her glucose was 21. Following that she responded. The accucheck being used then registered over 500. Another accucheck machine was called for and it read in the 300s. Prior to admission last note at 10 PM the ED accucheck was in the low 200s and the pt ate an evening meal and a snack.She verifies her lantus was 40 units taken yesterday with no additiona units taken. She is not on any other diabetic meds. Her last accucheck prior to the hypoglycemic event was in the low 200s. I suspect there was machine error involved along with the patient. In follow up after my ED shift the patuient was alert. She denies Fever , chills , headache , earache , sore throat , cough ,chest or abdomen pain , urinary symptoms, Nausea or vomiting , or rash. Dr Henderson has since placed orders for an abdomen CT. There is a standing nursing order for D50 if hypoglycemia is identified. Morning insulin continues to be on hold. Patient has no new complaints awaiting breakfast Objective: Vitals: T=97.8 F, P=81, R=18, AJ=076/65, SPO2=96 HEENT: [ no nodes no ketone breath ] Neck: []supple Lungs: [clear bilaterally no cough ] CVS: [no chest pain trop neg pusle regular ] Abdomen: [soft non tender flat ] Extremities: no edema no pain[FROM sensation intact ] Neurological: [alert oriented no confusion ] Skin: [no rash] Lab/Tests/Diagnostic Imaging: [ wbc 17 K] EKG - no st elevation some t wave inversion ant lat Plan: 1.Report to Dr Henderson at shift change. We discussed possibility of abd ct to assess for any clues to low blood sugar and WBC. He will follow.
[2021-08-19] MEDS ORDERED: DEXTROSE 50%-WATER ABBOJECT IVP ONE (06:11)
[2021-08-19] MEDS ORDERED: SODIUM CHLORIDE 1,000 ML IV STA (08:21)
--- NOTE | 2021-08-19 09:40 | CT ---
EXAM: CT chest without contrast HISTORY: Shortness of air COMPARISON: 08/09/2020 TECHNIQUE: CT chest performed without intravenous contrast. Coronal and sagittal reformatted images obtained. FINDINGS: Thoracic inlet unremarkable. Heart normal in size. Coronary calcifications. No pericard ial effusion. Aorta normal in caliber. Moderate atherosclerosis. Evaluation for lymphadenopathy li mited without contrast. No lymphadenopathy identified in the chest. Visualized portion upper abdome n demonstrates no acute abnormality. Patient status post cholecystectomy. No acute abnormalities of the bones. Multiple remote bilateral rib fractures. Several chronic compression deformities appear unchanged. Central airway patent. Bibasilar atelectasis. No airspace consolidation IMPRESSION: 1. Bibasilar atelectasis. No airspace consolidation. 2. Moderate hiatal hernia. 3. Coronary calcifications. Atherosclerosis. All CT scans are performed using dose optimization techniques as appropriate to the performed exam an d include at least one of the following: Automated exposure control, adjustment of the mA and/or kV according t o size, and the use of iterative reconstruction technique.
[2021-08-19] MEDS: FLORASTOR PO SCH (09:44)
[2021-08-19] MEDS: NAMENDA PO SCH ×2 (09:44→20:47)
[2021-08-19] MEDS: NEURONTIN PO SCH ×3 (09:44→20:47)
[2021-08-19] MEDS: LOPRESSOR PO SCH ×2 (09:44→20:47)
[2021-08-19] MEDS: ARICEPT PO SCH (09:44)
[2021-08-19] MEDS: LOVENOX SUBCUT SCH (09:45)
--- NOTE | 2021-08-19 09:59 | CT ---
EXAM: CT abdomen pelvis without contrast HISTORY: Abdominal pain COMPARISON: None TECHNIQUE: CT abdomen pelvis performed without intravenous contrast. Coronal and sagittal reformatt ed images obtained FINDINGS: Please refer to separate report CT chest same day regarding findings in the lower chest. N o free air. No acute abnormalities of the bones. Degenerative change in the spine. Several chronic compression deformities in the spine. Osteoarthritis of the hips. Evaluation organ parenchyma limi rosalinda without contrast. Liver unremarkable. Patient status post cholecystectomy. Pancreas unremarkab le. Spleen unremarkable. Adrenals unremarkable. No hydronephrosis or nephrolithiasis. Nonspecific bilateral perinephric stranding. Motion artifact in the region of the kidneys. No calculi visualiz ed in normal course of ureters. Bladder only mildly distended and poorly evaluated. Patient status post hysterectomy. Aorta normal in caliber. Moderate atherosclerosis. Moderate hiatal hernia. No dilated loops small bowel. Appendix appears normal. Colonic diverticulosis, extensive in the sigmoi d colon. Mild inflammation with associated wall thickening of the the sigmoid colon. Several adjace nt sub centimeter lymph nodes are present. Foci of air in the right lateral pelvic soft tissues may relate to injection of medicine. IMPRESSION: 1. Unexpected finding: Colonic diverticulosis, extensive in the sigmoid colon. Mild inflammation with associated wall thickening of the the sigmoid colon, most consistent with diverticulitis. Sever al adjacent sub centimeter lymph nodes are present and correlation with follow-up colonoscopy once ac kizzy symptomatology resolves is recommended to exclude underlying mass lesion. 2. Nonspecific bilateral perinephric stranding. Motion artifact in the region of the kidneys 3. Atherosclerosis 4. Moderate hiatal hernia All CT scans are performed using dose optimization techniques as appropriate to the performed exam an d include at least one of the following: Automated exposure control, adjustment of the mA and/or kV according t o size, and the use of iterative reconstruction technique.
[2021-08-19] MEDS: ULTRAM PO PRN ×2 (10:13→20:52)
[2021-08-19] MEDS: HUMULIN R SUBCUT PRN (10:25)
[2021-08-19] MEDS: SODIUM CHLORIDE 1,000 ML IV SCH (10:38)
--- NOTE | 2021-08-19 10:38 | CT ---
EXAM: CT lumbar spine without contrast HISTORY: Low back pain COMPARISON: CT chest 08/09/2020 TECHNIQUE: CT lumbar spine performed without intravenous contrast. Coronal and sagittal reformatted images obtained. FINDINGS: Mild chronic compression deformity T11. Moderate chronic compression deformity T12. Mild chronic compression deformity L1. No acute fracture. No subluxation. Multilevel marginal osteophy te formation. Multilevel intervertebral disc space narrowing. Multilevel facet arthrosis. Sacroili ac joints intact with mild degenerative change. T12-L1: No central canal or neural foraminal narrowing. L1-L2: Posterior disc osteophyte complex and facet arthrosis causing moderate right and mild-moderat e left neural foraminal narrowing. L2-L3: Posterior disc osteophyte complex and facet arthrosis causing mild central canal and mild yue ateral neural foraminal narrowing. L3-L4: Posterior disc osteophyte complex and facet arthrosis causing moderate central canal and moder ate to severe right and severe left neural foraminal narrowing. L4-L5: Posterior disc osteophyte complex and facet arthrosis causing mild to moderate central canal and mild to moderate right and moderate to severe left neural foraminal narrowing. L5-S1: Posterior disc osteophyte complex and facet arthrosis causing mild to moderate right and mild and moderate left neural foraminal narrowing. IMPRESSION: 1. No acute fracture or subluxation. 2. Chronic discogenic degenerative disease and facet arthrosis. Please see segmental analysis, noti ng multilevel central canal and neural foraminal narrowing. 3. Chronic compression deformities T11, T12, L1 All CT scans are performed using dose optimization techniques as appropriate to the performed exam an d include at least one of the following: Automated exposure control, adjustment of the mA and/or kV according t o size, and the use of iterative reconstruction technique.
--- NOTE | 2021-08-19 10:53 | PCM.PROG ---
pt care assumed from Dr Sheridan at 7am pt admitted for hypoglycemia and leukocytosis ct abd today shows diverticulitis, rocephin stopped, Levaquin and Flagyl started, neurochecks discontinued as pt neurologically intact, alert and oriented x3, gcs 15, IV NS increased to 75cc/hr for lactate 2, variable blood sugar ranging from 21 to 500, pt started on low dose sliding scale, will [place] q 1 hr accuchecks until blood sugar stablizes between 200 and 300, pt appetite good heent: conjunctiva clear lungs: clear heart: RRR abdomen: soft, no rebound extremities: warm and dry psych: affect appropriate Anticipate another 2 days for IV antibiotics to treat diverticulitis, check am WBC tomorrow care to Dr Hernandez at 7pm
[2021-08-19] MEDS: LEVAQUIN 500 MG/100 ML D5W 500 MG/100 ML BAG IV SCH (11:30)
[2021-08-19] MEDS: FLAGYL 500 MG/100 ML 500 MG/100 ML BAG IV SCH ×2 (13:04→20:47)
[2021-08-19] MEDS ORDERED: ROCEPHIN 1 GM/50 ML D5W 1 GM/50 ML BAG IV SCH (21:00)
[2021-08-20] MEDS: SODIUM CHLORIDE 1,000 ML IV SCH ×2 (00:20→13:49)
[2021-08-20] MEDS: TYLENOL PO PRN ×2 (02:01→19:32)
[2021-08-20] MEDS: FLAGYL 500 MG/100 ML 500 MG/100 ML BAG IV SCH ×3 (04:39→20:25)
[2021-08-20 05:11] LABS: BASOPHILS # (AUTO) 0.1 K/uL (0-0.2); BASOPHILS % (AUTO) 0.8 % (0.0-3.0); EOSINOPHILS # (AUTO) 0.2 K/ul (0.0-0.7); EOSINOPHILS % (AUTO) 2.4 % (0.0-7.0); HEMATOCRIT 34.3 % (37.0-47.0); HEMOGLOBIN 11.2 g/dl (12.0-16.0); IMMATURE GRANULOCYTE % (AUTO) 0.3 % (0.0-5.0); LYMPHOCYTES # (AUTO) 4.2 K/uL (0.60-3.4); LYMPHOCYTES % (AUTO) 44.4 (10.0-50.0); MEAN CORPUSCULAR HEMOGLOBIN 30.3 pg (27.0-31.0); MEAN CORPUSCULAR HGB CONC 32.7 (31.8-35.4); MEAN CORPUSCULAR VOLUME 92.7 fl (81.0-99.0); MONOCYTES # (AUTO) 0.7 K/uL (0.4-2.0); MONOCYTES % (AUTO) 6.8 (0-10); NEUTROPHILS # (AUTO) 4.3 K/ul (2.0-6.9); NEUTROPHILS % (AUTO) 45.3 % (42.2-75.2); PLATELET COUNT 206 10^3/uL (140-440); RDW COEFFICIENT OF VARIATION 14.6 % (11.6-14.8); WHITE BLOOD COUNT 9.53 K/ul (4.6-10.2)
[2021-08-20 05:22] LABS: ALBUMIN 2.59 g/dL (3.5-5.0); ALKALINE PHOSPHATASE 56.3 U/L (53-141); ASPARTATE AMINO TRANSFERASE 21.4 U/L (14-36); BILIRUBIN,TOTAL 0.15 mg/dL (0.2-1.3); BLOOD UREA NITROGEN 15.8 mg/dL (7-17); CALCIUM 7.63 mg/dL (8.4-10.2); CARBON DIOXIDE 23.1 mmol/L (22-30.0); CREATININE 0.93 mg/dL (0.60-1.30); GLUCOSE 86.8 mg/dL (74-106); POTASSIUM 4.17 mmol/L (3.5-5.1); TOTAL PROTEIN 5.27 g/dL (6.3-8.2)
[2021-08-20] MEDS: NAMENDA PO SCH ×2 (08:38→20:26)
[2021-08-20] MEDS: FLORASTOR PO SCH (08:38)
[2021-08-20] MEDS: LEVAQUIN 500 MG/100 ML D5W 500 MG/100 ML BAG IV SCH (08:38)
[2021-08-20] MEDS: NEURONTIN PO SCH ×3 (08:38→20:26)
[2021-08-20] MEDS: LOVENOX SUBCUT SCH (08:39)
[2021-08-20] MEDS: LOPRESSOR PO SCH ×2 (08:39→20:26)
[2021-08-20] MEDS: ARICEPT PO SCH (08:39)
[2021-08-20] MEDS: ULTRAM PO PRN ×2 (08:50→14:52)
--- NOTE | 2021-08-20 14:53 | PCM.PROG ---
Date Seen by Provider: 08/20/21 Time Seen by Provider: 13:00 Subjective: Feels better. Abdominal pain about resolved. Says she would like to go home tomorrow. Tolerating diabetic diet well. Objective: Vitals: T=97.8 F, P=87, R=18, PL=874/80, SPO2=96 HEENT: [WNL] Neck: [supple] Lungs: [clear] CVS: [RRR, no m] Abdomen: [soft, no TTP] Extremities: [intact] Neurological: intact Skin: [wnl] Lab/Tests/Diagnostic Imaging: [WBC today down to 9, BMP improved. Nurses checking her glucose hourly since it was low in ED (after taking lantus), has been normal for over 24 h.] (1) Diverticulitis: Status: Acute Code(s): K57.92 - Diverticulitis of intestine, part unspecified, without perforation or abscess without bleeding SNOMED Code(s): 679874420 Assessment: Significantly improved, can be changed to a short course of oral abx when discharged. (2) Diabetes: Status: Chronic Code(s): E11.9 - Type 2 diabetes mellitus without complications SNOMED Code(s): 70206779 Assessment: She will need her insulin regimen adjusted at time of d/c. The low BS issue has resolved. (3) UTI (urinary tract infection): Status: Acute Code(s): N39.0 - Urinary tract infection, site not specified SNOMED Code(s): 14309195 Assessment: Resolved clinically. Need to look for any culture report. Plan: Plan d/c tomorrow if all continues to improve.
[2021-08-20] MEDS: NYSTOP POWDER TP SCH (20:37)
[2021-08-21] MEDS: FLAGYL 500 MG/100 ML 500 MG/100 ML BAG IV SCH ×2 (04:19→14:52)
[2021-08-21] MEDS: ULTRAM PO PRN ×3 (04:28→18:26)
[2021-08-21] MEDS: LOPRESSOR PO SCH ×2 (09:03→20:27)
[2021-08-21] MEDS: NEURONTIN PO SCH ×3 (09:03→20:27)
[2021-08-21] MEDS: FLORASTOR PO SCH (09:03)
[2021-08-21] MEDS: ARICEPT PO SCH (09:04)
[2021-08-21] MEDS: NAMENDA PO SCH ×2 (09:04→20:28)
[2021-08-21] MEDS: NYSTOP POWDER TP SCH ×2 (09:05→20:28)
[2021-08-21] MEDS: LOVENOX SUBCUT SCH (09:05)
[2021-08-21] MEDS: LEVAQUIN 500 MG/100 ML D5W 500 MG/100 ML BAG IV SCH ×2 (09:05→09:36)
[2021-08-21] MEDS: LEVAQUIN PO SCH (10:11)
[2021-08-21] MEDS: TYLENOL PO PRN (17:05)
[2021-08-21] MEDS: FLAGYL PO SCH (20:27)
[2021-08-21] MEDS: HUMULIN R SUBCUT PRN (20:29)
[2021-08-22] MEDS: TYLENOL PO PRN ×2 (00:31→10:47)
[2021-08-22] MEDS: ULTRAM PO PRN ×2 (02:59→08:56)
[2021-08-22 05:10] VITALS: BP 137/81; TEMP 97.8
[2021-08-22] MEDS: FLAGYL PO SCH (05:41)
[2021-08-22] MEDS: LEVAQUIN PO SCH (05:41)
[2021-08-22] MEDS ORDERED: IMODIUM PO PRN (07:58)
[2021-08-22] MEDS: LOPRESSOR PO SCH (08:55)
[2021-08-22] MEDS: NAMENDA PO SCH (08:56)
[2021-08-22] MEDS: FLORASTOR PO SCH (08:56)
[2021-08-22] MEDS: ARICEPT PO SCH (08:56)
[2021-08-22] MEDS: NEURONTIN PO SCH (08:56)
[2021-08-22] MEDS: NYSTOP POWDER TP SCH (08:57)
[2021-08-22] MEDS: LOVENOX SUBCUT SCH (08:58)
--- NOTE | 2021-08-22 17:10 | PCM.DC ---
Final Diagnosis: Hypoglycemia - resolved. Diverticulitis - resolved. (1) Diverticulitis: Status: Acute Code(s): K57.92 - Diverticulitis of intestine, part unspecified, without perforation or abscess without bleeding SNOMED Code(s): 684206808 (2) Hypoglycemia associated with diabetes: Status: Acute Code(s): E11.649 - Type 2 diabetes mellitus with hypoglycemia without coma SNOMED Code(s): 995624998 Reason for Hospitalization: Hypoglycemia in a diabetic on insulin. Diverticulitis requiring IV abx. Prognosis/Condition at Discharge: Good, stable. Medications at Discharge: Ambulatory Orders Medication Instructions Recorded Lactobacillus acidophilus 10 10,000 mmu cells PO DAILY 08/09/20 billion cell capsule (Probiotic) calcium carb 333 mg-vit D3 133 1 tab PO DAILY 08/09/20 unit-mag ox 133 mg-zinc oxide 5 mg tab (John Mag Zinc Plus D3) donepezil 10 mg tablet 10 mg PO DAILY 08/09/20 gabapentin 400 mg tablet 400 mg PO TID 08/09/20 melatonin 10 mg tablet 10 mg PO BEDTIME PRN 08/09/20 memantine 10 mg tablet 10 mg PO BID 08/09/20 metoprolol tartrate 25 mg tablet 25 mg PO BID 08/09/20 tramadol 50 mg tablet 50 mg PO TID PRN 08/09/20 insulin glargine 100 unit/mL (3 20 unit (0.2 mL) SUBCUT QAM #7 ml 08/22/21 mL) subcutaneous pen (Lantus Solostar U-100 Insulin) Lab/Diagnostics: Laboratory Tests 08/18/21 08/18/21 08/18/21 17:20 17:20 17:56 WBC 19.11 H RBC 4.31 Hgb 13.2 Hct 40.8 MCV 94.7 MCH 30.6 MCHC 32.4 RDW Coeff of [place] 14.3 Plt Count 235 Immature Gran % (Auto) 0.3 Neut % (Auto) 79.0 H Lymph % (Auto) 14.7 [place] % (Auto) 4.5 Eos % (Auto) 0.8 Baso % (Auto) 0.7 Neut # (Auto) 15.1 H Lymph # (Auto) 2.8 [place] # (Auto) 0.9 Eos # (Auto) 0.2 Baso # (Auto) 0.1 Immature Gran # (Auto) 0.1 Neutrophils % (Manual) Lymphocytes % (Manual) Monocytes % (Manual) Eosinophils % (Manual) Basophils % (Manual) Anisocytosis Sodium 143.5 Potassium 4.11 Chloride 109.5 H Carbon Dioxide 26.7 Anion Gap 11.41 BUN 18.8 H Creatinine 0.96 Estimated GFR (MDRD) 55.00 BUN/Creatinine Ratio 19.58 Glucose 107.7 H Hemoglobin A1c Lactic Acid Uric Acid 5.13 Calcium 8.49 Total Bilirubin 0.19 L AST 20.0 ALT 9.7 Alkaline Phosphatase 68.6 Troponin I < 0.012 Total Protein 6.57 Albumin 3.47 L Globulin 3.10 Albumin/Globulin Ratio 1.11 Procalcitonin Urine Color Yellow Urine Clarity Clear Urine pH 5.0 Ur Specific [place] >=1.030 Urine Protein Negative Urine Glucose (UA) Negative Urine Ketones Negative Urine Blood Negative Urine Nitrite Negative Urine Bilirubin Negative Urine Urobilinogen 0.2 Ur Leukocyte Esterase Trace H Urine Microscopic WBC 2-5 Ur Squamous Epith Cells 20-30 Urine Mucus 1+ Adenovirus (PCR) B. pertussis DNA (PCR) B.parapertussis DNA PCR C. pneumoniae DNA (PCR) Coronavirus OC43 (PCR) Coronavirus HKU1 (PCR) Coronavirus 229E (PCR) Coronavirus NL63 (PCR) Human Metapneumovir PCR Influenza Type A (PCR) Influenza B (RT-PCR) M. pneumoniae (PCR) Parainfluenza 1 (PCR) Parainfluenza 2 (PCR) Parainfluenza 3 (PCR) Parainfluenza 4 (PCR) RSV (PCR) Entero/Rhino (PCR) SARS-CoV-2 (PCR) 08/18/21 08/18/21 08/18/21 19:00 19:00 19:00 WBC 16.23 H RBC 4.40 Hgb 13.2 Hct 41.7 MCV 94.8 MCH 30.0 MCHC 31.7 L RDW Coeff of [place] 14.5 Plt Count 225 Immature Gran % (Auto) 0.4 Neut % (Auto) 74.1 Lymph % (Auto) 20.8 [place] % (Auto) 3.5 Eos % (Auto) 0.5 Baso % (Auto) 0.7 Neut # (Auto) 12.0 H Lymph # (Auto) 3.4 [place] # (Auto) 0.6 Eos # (Auto) 0.1 Baso # (Auto) 0.1 Immature Gran # (Auto) 0.1 Neutrophils % (Manual) Lymphocytes % (Manual) Monocytes % (Manual) Eosinophils % (Manual) Basophils % (Manual) Anisocytosis Sodium Potassium Chloride Carbon Dioxide Anion Gap BUN Creatinine Estimated GFR (MDRD) BUN/Creatinine Ratio Glucose 110.2 H Hemoglobin A1c Lactic Acid 2.02 Uric Acid Calcium Total Bilirubin AST ALT Alkaline Phosphatase Troponin I Total Protein Albumin Globulin Albumin/Globulin Ratio Procalcitonin Urine Color Urine Clarity Urine pH Ur Specific [place] Urine Protein Urine Glucose (UA) Urine Ketones Urine Blood Urine Nitrite Urine Bilirubin Urine Urobilinogen Ur Leukocyte Esterase Urine Microscopic WBC Ur Squamous Epith Cells Urine Mucus Adenovirus (PCR) B. pertussis DNA (PCR) B.parapertussis DNA PCR C. pneumoniae DNA (PCR) Coronavirus OC43 (PCR) Coronavirus HKU1 (PCR) Coronavirus 229E (PCR) Coronavirus NL63 (PCR) Human Metapneumovir PCR Influenza Type A (PCR) Influenza B (RT-PCR) M. pneumoniae (PCR) Parainfluenza 1 (PCR) Parainfluenza 2 (PCR) Parainfluenza 3 (PCR) Parainfluenza 4 (PCR) RSV (PCR) Entero/Rhino (PCR) SARS-CoV-2 (PCR) 08/18/21 08/18/21 08/19/21 19:00 21:00 01:00 WBC RBC Hgb Hct MCV MCH MCHC RDW Coeff of [place] Plt Count Immature Gran % (Auto) Neut % (Auto) Lymph % (Auto) [place] % (Auto) Eos % (Auto) Baso % (Auto) Neut # (Auto) Lymph # (Auto) [place] # (Auto) Eos # (Auto) Baso # (Auto) Immature Gran # (Auto) Neutrophils % (Manual) Lymphocytes % (Manual) Monocytes % (Manual) Eosinophils % (Manual) Basophils % (Manual) Anisocytosis Sodium Potassium Chloride Carbon Dioxide Anion Gap BUN Creatinine Estimated GFR (MDRD) BUN/Creatinine Ratio Glucose Hemoglobin A1c Lactic Acid 1.19 D Uric Acid Calcium Total Bilirubin AST ALT Alkaline Phosphatase Troponin I Total Protein Albumin Globulin Albumin/Globulin Ratio Procalcitonin 0.05 Urine Color Urine Clarity Urine pH Ur Specific [place] Urine Protein Urine Glucose (UA) Urine Ketones Urine Blood Urine Nitrite Urine Bilirubin Urine Urobilinogen Ur Leukocyte Esterase Urine Microscopic WBC Ur Squamous Epith Cells Urine Mucus Adenovirus (PCR) Not detected B. pertussis DNA (PCR) Not detected B.parapertussis DNA PCR Not detected C. pneumoniae DNA (PCR) Not detected Coronavirus OC43 (PCR) Not detected Coronavirus HKU1 (PCR) Not detected Coronavirus 229E (PCR) Not detected Coronavirus NL63 (PCR) Not detected Human Metapneumovir PCR Not detected Influenza Type A (PCR) Not detected Influenza B (RT-PCR) Not detected M. pneumoniae (PCR) Not detected Parainfluenza 1 (PCR) Not detected Parainfluenza 2 (PCR) Not detected Parainfluenza 3 (PCR) Not detected Parainfluenza 4 (PCR) Not detected RSV (PCR) Not detected Entero/Rhino (PCR) Not detected SARS-CoV-2 (PCR) Not detected 08/19/21 08/19/21 08/19/21 05:08 05:08 05:08 WBC 17.76 H RBC 4.51 Hgb 13.6 Hct 41.3 MCV 91.6 MCH 30.2 MCHC 32.9 RDW Coeff of [place] 14.2 Plt Count 293 D Immature Gran % (Auto) Neut % (Auto) Lymph % (Auto) [place] % (Auto) Eos % (Auto) Baso % (Auto) Neut # (Auto) Lymph # (Auto) [place] # (Auto) Eos # (Auto) Baso # (Auto) Immature Gran # (Auto) Neutrophils % (Manual) 45.0 Lymphocytes % (Manual) 47.0 Monocytes % (Manual) 5.0 Eosinophils % (Manual) 2.0 Basophils % (Manual) 1.0 Anisocytosis Not present Sodium 144.3 Potassium 3.44 L Chloride 110.5 H Carbon Dioxide 27.1 Anion Gap 10.14 BUN 15.3 Creatinine 0.97 Estimated GFR (MDRD) 54.00 BUN/Creatinine Ratio 15.77 Glucose 21.7 L* D Hemoglobin A1c 6.52 H Lactic Acid Uric Acid Calcium 8.71 Total Bilirubin 0.23 AST 22.4 ALT 10.0 Alkaline Phosphatase 75.4 Troponin I < 0.012 Total Protein 6.76 Albumin 3.65 Globulin 3.11 Albumin/Globulin Ratio 1.17 Procalcitonin Urine Color Urine Clarity Urine pH Ur Specific [place] Urine Protein Urine Glucose (UA) Urine Ketones Urine Blood Urine Nitrite Urine Bilirubin Urine Urobilinogen Ur Leukocyte Esterase Urine Microscopic WBC Ur Squamous Epith Cells Urine Mucus Adenovirus (PCR) B. pertussis DNA (PCR) B.parapertussis DNA PCR C. pneumoniae DNA (PCR) Coronavirus OC43 (PCR) Coronavirus HKU1 (PCR) Coronavirus 229E (PCR) Coronavirus NL63 (PCR) Human Metapneumovir PCR Influenza Type A (PCR) Influenza B (RT-PCR) M. pneumoniae (PCR) Parainfluenza 1 (PCR) Parainfluenza 2 (PCR) Parainfluenza 3 (PCR) Parainfluenza 4 (PCR) RSV (PCR) Entero/Rhino (PCR) SARS-CoV-2 (PCR) 08/19/21 08/19/21 08/19/21 05:58 08:15 08:37 WBC RBC Hgb Hct MCV MCH MCHC RDW Coeff of [place] Plt Count Immature Gran % (Auto) Neut % (Auto) Lymph % (Auto) [place] % (Auto) Eos % (Auto) Baso % (Auto) Neut # (Auto) Lymph # (Auto) [place] # (Auto) Eos # (Auto) Baso # (Auto) Immature Gran # (Auto) Neutrophils % (Manual) Lymphocytes % (Manual) Monocytes % (Manual) Eosinophils % (Manual) Basophils % (Manual) Anisocytosis Sodium Potassium Chloride Carbon Dioxide Anion Gap BUN Creatinine Estimated GFR (MDRD) BUN/Creatinine Ratio Glucose 334.8 H D 208.0 H D Hemoglobin A1c Lactic Acid 2.26 H D Uric Acid Calcium Total Bilirubin AST ALT Alkaline Phosphatase Troponin I Total Protein Albumin Globulin Albumin/Globulin Ratio Procalcitonin Urine Color Urine Clarity Urine pH Ur Specific [place] Urine Protein Urine Glucose (UA) Urine Ketones Urine Blood Urine Nitrite Urine Bilirubin Urine Urobilinogen Ur Leukocyte Esterase Urine Microscopic WBC Ur Squamous Epith Cells Urine Mucus Adenovirus (PCR) B. pertussis DNA (PCR) B.parapertussis DNA PCR C. pneumoniae DNA (PCR) Coronavirus OC43 (PCR) Coronavirus HKU1 (PCR) Coronavirus 229E (PCR) Coronavirus NL63 (PCR) Human Metapneumovir PCR Influenza Type A (PCR) Influenza B (RT-PCR) M. pneumoniae (PCR) Parainfluenza 1 (PCR) Parainfluenza 2 (PCR) Parainfluenza 3 (PCR) Parainfluenza 4 (PCR) RSV (PCR) Entero/Rhino (PCR) SARS-CoV-2 (PCR) 08/20/21 08/20/21 05:03 05:03 WBC 9.53 D RBC 3.70 L Hgb 11.2 L Hct 34.3 L D MCV 92.7 MCH 30.3 MCHC 32.7 RDW Coeff of [place] 14.6 Plt Count 206 Immature Gran % (Auto) 0.3 Neut % (Auto) 45.3 Lymph % (Auto) 44.4 [place] % (Auto) 6.8 Eos % (Auto) 2.4 Baso % (Auto) 0.8 Neut # (Auto) 4.3 Lymph # (Auto) 4.2 H [place] # (Auto) 0.7 Eos # (Auto) 0.2 Baso # (Auto) 0.1 Immature Gran # (Auto) 0.0 Neutrophils % (Manual) Lymphocytes % (Manual) Monocytes % (Manual) Eosinophils % (Manual) Basophils % (Manual) Anisocytosis Sodium 140.0 Potassium 4.17 Chloride 112.0 H Carbon Dioxide 23.1 Anion Gap 9.07 BUN 15.8 Creatinine 0.93 Estimated GFR (MDRD) 57.00 BUN/Creatinine Ratio 16.98 Glucose 86.8 D Hemoglobin A1c Lactic Acid Uric Acid Calcium 7.63 L Total Bilirubin 0.15 L AST 21.4 ALT 9.0 Alkaline Phosphatase 56.3 Troponin I Total Protein 5.27 L Albumin 2.59 L Globulin 2.68 Albumin/Globulin Ratio 0.96 Procalcitonin Urine Color Urine Clarity Urine pH Ur Specific [place] Urine Protein Urine Glucose (UA) Urine Ketones Urine Blood Urine Nitrite Urine Bilirubin Urine Urobilinogen Ur Leukocyte Esterase Urine Microscopic WBC Ur Squamous Epith Cells Urine Mucus Adenovirus (PCR) B. pertussis DNA (PCR) B.parapertussis DNA PCR C. pneumoniae DNA (PCR) Coronavirus OC43 (PCR) Coronavirus HKU1 (PCR) Coronavirus 229E (PCR) Coronavirus NL63 (PCR) Human Metapneumovir PCR Influenza Type A (PCR) Influenza B (RT-PCR) M. pneumoniae (PCR) Parainfluenza 1 (PCR) Parainfluenza 2 (PCR) Parainfluenza 3 (PCR) Parainfluenza 4 (PCR) RSV (PCR) Entero/Rhino (PCR) SARS-CoV-2 (PCR) Education Provided to Patient and Family: Hypoglycemia and diabetes, diverticulitis. Follow-ups: With PCP next week. Discharge Disposition: Home Hospital Course: Arrived in ER with hypoglycemia, on lantus 40 u daily, not eating much due to illness (abd pain, diarrhea). Work-up in ER revealed diverticulitis. Admitted to monitor BS and give IV abx. Quickly improved and within 3 days, WBC normal. BS controlled with sliding scale, no lantus needed. Delay in d/c due to resisting her coming home, evidently some secondary gain issues. Ended up getting 5 d. of IV abx, and since completely well for 2 days before d/c, no further abx felt to be needed. Restart lantus at one-half dose (20 units daily). See PCP soon. Plan: Home, no further antibiotics clinically needed. Resume lantus at 20 units daily. See PCP.
== END 2021-08-22 12:39 | disposition home or self-care (01) | DRG 637 ==
LOC: MEDSURG A 16:08 → ED 16:08 → MEDSURG A 22:23
PROVIDERS: ADMIT Emergency Medicine; ATTEND Emergency Medicine
DX: K44.9 Diaphragmatic hernia without obstruction or gangrene; E11.641 Type 2 diabetes mellitus with hypoglycemia with coma; J98.11 Atelectasis; N15.1 Renal and perinephric abscess; K63.89 Other specified diseases of intestine; Z51.81 Encounter for therapeutic drug level monitoring; Z20.822 Contact with and (suspected) exposure to COVID-19; I70.209 Unspecified atherosclerosis of native arteries of extremities, unspecified extremity; D72.829 Elevated white blood cell count, unspecified; Z79.899 Other long term (current) drug therapy; K57.32 Diverticulitis of large intestine without perforation or abscess without bleeding; N39.0 Urinary tract infection, site not specified